=== PATIENT | male | born 1955 | race Caucasian/White ===

== ENCOUNTER 2022-05-31 07:26 | Emergency (ER) | payer MEDICARE, SELFPAY ==
[2022-05-31 07:34] VITALS: BP 141/85; PULSE 85; RESP 16; TEMP 36.7; O2SAT 100; BMI 21.5
--- NOTE | 2022-05-31 07:44 | W.ED.ANIMALB ---
HPI - Animal Bite General: Chief Complaint: Animal Bite Stated Complaint: possible animal bite Time Seen by Provider: 05/31/22 07:28 Source: patient Mode of arrival: ambulatory Limitations: no limitations History of Present Illness: 67-year-old male presents to the ER today for possible bat bite. Patient reports he was out walking in front of his house last night and saw a bat. He denies that it touched him or can anywhere near him. Patient reports when he was wiping his neck off after he got inside and cleaning up for bed, he felt kind of a stinging area on the left side of his neck. Patient denies any blood or open wounds. Again patient denied that the bat was anywhere near him or touched him. Patient was just concerned and thought he should have it checked out today. Review of Systems General: Reports: 10 or more systems reviewed and unremarkable except in HPI and below Physical Exam Const: COMMON NORMALS: no acute distress, average body habitus, patient oriented x3, healthy appearing, alert and well nourished HENMT: COMMON NORMALS: normocephalic, atraumatic and moist oral mucous membranes HEAD & SCALP: normocephalic and atraumatic Eye: COMMON NORMALS: conjunctivae normal CONJUNCTIVA: Yes conjunctivae normal Neck/C-Spine: OTHER: no lesions noted on the neck, no open wounds, no swelling Resp: COMMON NORMALS: normal respiratory effort EFFORT & INSPECTION: Yes able to speak in complete sentences Cardio: COMMON NORMALS: regular rate and regular rhythm RATE: regular rate RHYTHM: regular rhythm Extremity: COMMON NORMALS: normal to inspection and full ROM Neuro: COMMON NORMALS: patient oriented x3 SENSORIUM/ORIENTATION: Yes alert Psych: COMMON NORMALS: mental status grossly normal, Normal thought process present and cooperative THOUGHT PROCESS: Normal thought process present Skin: COMMON NORMALS: no rashes or lesions noted GENERAL SKIN EXAM: no rashes or lesions noted Course ED course: 67-year-old male presents to the ER today for checkup. Patient reports he was outside walking in front of his house last night and started back. Patient reports he then went inside and was cleaning up for bed and noticed a stinging area on the left side of his neck. Patient denies that that touch him or can anywhere near him. Patient denies any known bite. Patient reports he could have a sunspot or small cut or something on his neck but was unable to see it. No other concerns or symptoms at this time. Vital Signs: Vital signs: Vital Signs Temperature 98.1 F 05/31/22 07:34 Pulse Rate 85 05/31/22 07:34 Respiratory Rate 16 05/31/22 07:34 Blood Pressure 141/85 05/31/22 07:34 Pulse Oximetry 100 05/31/22 07:34 Oxygen Delivery Me thod 05/31/22 07:34 MDM - Animal Bite Medical Decision Making 67-year-old male presents to the ER today for checkup. Patient reports he was outside walking in front of his house last night and started back. Patient reports he then went inside and was cleaning up for bed and noticed a stinging area on the left side of his neck. Patient denies that that touch him or can anywhere near him. Patient denies any known bite. Patient reports he could have a sunspot or small cut or something on his neck but was unable to see it. No other concerns or symptoms at this time. After discussing this with patient, I do not feel patient was bit by a bat. Patient was awake and alert the whole time outside and did not feel anything touched him or bite him. He likely would have felt a bat either hit him, bite him, etc. Recommended patient continue to watch that site. Patient does have what appears to be possible AK in the area he was pointing to however there is not a definitive lesion or spot right there. Recommend follow-up with PCP in 3 to 5 days or as needed. Return to the ER with new or worsening symptoms. Patient verbalized understanding and was in agreement with the treatment plan. Critical Care Time Critical Care Time: Critical Care Time: No Discharge Plan Discharge Patient Disposition: Home Clinical Impression: Worried well Condition: Stable Discharge Orders: Discharge ED (Routine); Ordered 05/31/22 Ordered By: Dalia Sheehan Referrals: Edgardo Briseno [Family Provider] - Discharge Diet: Usual diet Discharge Activity: Resume usual activity Patient Instructions: Opioid Safety Activity Restrictions/Additional Instructions: Follow-up with PCP as needed. Coding Level of Care Code ED Finger Grip Machine Operator for Adriana Bull
== END 2022-05-31 07:57 | disposition home or self-care (01) ==
LOC: ER 08:11
PROVIDERS: Emergency Provider Family Medicine
DX: Z03.89 Encounter for observation for other suspected diseases and conditions ruled out (principal)
CPT/HCPCS: 99282

== ENCOUNTER → 2024-09-19 09:47 | Outpatient (BNVA) | payer MEDICARE, SELFPAY | PROVIDERS: PCP Nurse Practitioner Family; Referring Provider Nurse Practitioner Family; Visit Provider Nurse Practitioner Family | DX: L81.4 Other melanin hyperpigmentation (principal); L82.1 Other seborrheic keratosis; L57.8 Other skin changes due to chronic exposure to nonionizing radiation; D48.5 Neoplasm of uncertain behavior of skin; L57.0 Actinic keratosis | CPT/HCPCS: 11102; 17000; 99203 ==

== ENCOUNTER → 2025-03-20 08:52 | Outpatient (BNVA) | payer MEDICARE, SELFPAY | PROVIDERS: PCP Nurse Practitioner Family; Visit Provider Nurse Practitioner Family | DX: L81.4 Other melanin hyperpigmentation (principal); L57.8 Other skin changes due to chronic exposure to nonionizing radiation; L82.0 Inflamed seborrheic keratosis; L29.89 Other pruritus; R20.9 Unspecified disturbances of skin sensation; R20.8 Other disturbances of skin sensation; L53.8 Other specified erythematous conditions; L57.0 Actinic keratosis | CPT/HCPCS: 17000; 17110; 99213 ==

== ENCOUNTER → 2025-07-31 12:44 | Outpatient (BNVA) | payer MEDICARE, SELFPAY | PROVIDERS: PCP Nurse Practitioner Family; Visit Provider Orthopaedic Surgery | DX: M17.12 Unilateral primary osteoarthritis, left knee (principal); Z01.89 Encounter for other specified special examinations | CPT/HCPCS: 73560; 73565; 99204 ==

== ENCOUNTER 2025-08-16 13:13 | Observation (INO) | payer MEDICARE, SELFPAY ==
[2025-08-16] VITALS (15 sets, daily range): BP systolic 94–133; BP diastolic 53–83; PULSE 60–88; RESP 15–18; TEMP 36.3–36.8; O2SAT 97–99; BMI 20.7
--- NOTE | 2025-08-16 09:01 | ANES.PREANE2 ---
Pre-Anesthetic Assessment Height/Weight: Height 5 ft 10 in Preop Diagnosis: Knee arthritis Operation Date: 08/16/25 10:00 Proposed Procedures p LEFT Total Knee Arthroplasty(Left) - Stephan Ray MD Was Beta Celi taken within 24 hours: N/A Was Clonidine taken within 24 hours: N/A Social No alcohol and No tobacco Exam alert, oriented x 3, clear to auscultation bilaterally and regular rate & rhythm Airway Submandibular: within normal limits Cervical ROM: within normal limits Mallampati: Class I Comments: Comments: Edentulous Anesthetic Plan ASA status: 1 Anesthesia: MAC and Regional (specify below) Other: No prior issues with anesthesia NPO since yesterday evening Denies any cardiac or pulmonary issues Very active individual, METs greater than 4 Labs pending Plan for spinal anesthetic with peripheral nerve block in PACU setting Medications/Allergies Home Medications ?Medication ?Instructions ?Recorded ?Confirmed ?Last Taken ?Type No Known Home Medications 07/31/25 07/31/25 Unknown History Allergies Allergy/AdvReac Type Severity Reaction Status Date / Time Penicillins Allergy ALGY-Hives Verified 08/15/25 14:55 [facility] Anesthesia Social History Smoking and tobacco/nicotine status: never used tobacco/nicotine Data Anesthesia 08/16/25 09:18 08/16/25 09:18
[2025-08-16 09:53] LABS: Anion Gap 16.9 (5-19); Blood Urea Nitrogen 12 mg/dL (8-23); Calcium 9.2 mg/dL (8.5-10.5); Carbon Dioxide 25 mmol/L (22-29); Chloride 105 mmol/L (98-107); Creatinine Clr Calc Pharmacy 82.7669; Glucose 84 mg/dL (65-115); Osmolality Calculated 295 mOsm/kg (285-295); Potassium 3.9 mmol/L (3.5-5.1); Sodium 143 mmol/L (136-145)
[2025-08-16 10:20] LABS: Hematocrit 44.6 % (37-53); Hemoglobin 14.90 g/dL (11.27-16.99); Mean Corpuscular HGB Conc 33.4 g/dL (30-55); Mean Corpuscular Hemoglobin 31.2 pg (27-33); Mean Corpuscular Volume 93.5 fl (82-101); Nucleated Red Blood Cells % 0 %; Platelet Count 237 10^3/cmm (157-399); Red Blood Count 4.77 10^6/uL (3.85-5.65); White Blood Count 5.37 10^3/uL (3.29-11.43)
--- NOTE | 2025-08-16 10:31 | W.PM.OPSUD ---
Surgery/Procedure H&P Update DATE OF PROCEDURE: August 16, 2025 DATE H&P PERFORMED: 07/31/25 H&P UPDATE INFORMATION: I have reviewed H&P completed within last 30 days, I have examined patient prior to procedure and No changes to prior documentation PREOP DIAGNOSIS: Knee arthritis PLANNED PROCEDURE: Operation Date: 08/16/25 10:00 Proposed Procedures p LEFT Total Knee Arthroplasty(Left) - Stephan Ray MD
[2025-08-16] MEDS: tranexamic acid 1,000 mg/10mL SDV 1000 MG IV (11:05)
--- NOTE | 2025-08-16 12:23 | XRR_ITS ---
PROCEDURE INFORMATION: Exam: XR Left Knee Exam date and time: 08/16/2025 1:44 PM Age: 70 years old Clinical indication: Pain; Left; Prior surgery; Surgery date: 1-6 months; Surgery type: Lt total knee artroplasty; Additional info: Left total knee arthroplasty TECHNIQUE: Imaging protocol: Radiologic exam of the left knee. Views: 3 views. COMPARISON: CR XR knees AP WB w LT lmt ORTH 07/31/2025 12:52 PM FINDINGS: Tubes, catheters and devices: Midline navi. Bones/joints: Left knee arthroplasty. Patellar resurfacing. Postoperative air and fluid in the knee joint space. Soft tissues: Normal. XR/XR knee LT 3V* [id number] IMPRESSION: Expected postoperative changes, status-post left knee arthroplasty. Anatomic alignment. No periprosthetic fracture.
--- NOTE | 2025-08-16 12:29 | P.OP_ITS ---
Operative Report Date of procedure: August 16, 2025 Surgeon: Stephan Ray MD Procedure: Preoperative diagnosis: End-stage degenerative joint disease left knee Postoperative diagnosis: Same Procedure: Left total knee arthroplasty Surgeon: Stephan Ray MD [employer] Representative: LILLY Castano's assistance was necessary for positioning of the patient, assistance during the procedure, wound closure, and dressing placement Anesthesia: Spinal EBL: 100 cc Tourniquet time: 37 minutes at 250 mmHg Indications: Alex is a 70-year-old white male has been followed in the orthopedic clinics for debilitating left knee pain. Said pain problems difficulties with this. Conservative measures have not been of any help of as of lately.. X-rays have demonstrated degenerative changes within his knee with sclerosis of the subchondral bone of the femur and tibia. Majority of his pain is medially. Therefore at this time he is offered a total knee arthroplasty. All risk, benefits, treatment alternatives were discussed with him and he is agreeable to this at this time. Procedure: After obtaining written consent patient was taken to the operating room placed on the operative table supine position spinal anesthetic was ad ministered. Once good anesthesia was achieved pneumatic cuffs placed on proximal left leg left leg was prepped and draped usual fashion. After surgical timeout and gravity exsanguination pneumatic cuff was inflated 2 and 50 mmHg. Longitudinal incision was made along the anterior aspect of the knee from tibial tubercle to superior pole the patella. Patient's foot was held in a foot holding device to the knee flexed at 90 degrees. Knee was then opened up along medial parapatellar incision line. Soft tissues were sharply debrided including anterior horn and medial meniscus ACL and hypertrophic scar and fat pad. Capsule was stripped from the medial aspect of the tibia for better exposure. Knee was then put out to full extension and patella was everted. Excess bone and tissue around its periphery was removed and patella was reamed to 14 mm thickness. Patellas placed back to lateral gutter knee flexed back to 90 degrees. Appropriate soft tissue retractors were placed both medially and laterally as well as a PCL retractor. Tibial cutting guide was position for 2 mm cut off the most affected side that being medial. This is pinned in place with appropriate posterior slope. Sagittal saw was then used to make this cut after a small osteotome may have been driven anterior to the PCL protected during this time. Box cut was made around the insertion of the PCL and tibial cut was removed piecemeal. PCL retractor was removed drill hole was placed in the distal femur just anterior to the intercondylar notch. Guide josselin was placed up the intramedullary canal of the femur and distal cutting block was positioned and pinned in place. Distal cuts were made without any difficulties. Distal femur sized a size 9 femoral cutting block. Guide holes were drilled through this. Size 9 cutting block was then impacted on the distal femur. Anterior posterior and chamfer cuts were made without any difficulties. At this point PCL tractors placed back into the joint line and all soft tissue was removed from the joint line. At this point sizing of the tibial surface demonstrated that would be very tight posteriorly and therefore it is felt that 2 more millimeter cut off the tibia was necessary. Guidepins were placed back into the original drill holes. Cutting block was placed over this and a 2 mm cut was made. All excess bone and soft tissue removed from the joint line. Proximal tibia is then sized to a size E tray precisely and pinned in place. Trial size 10 tibial spacer was placed on this. Subsequently size 9 trial femoral component was then impacted on the distal femur. Leg was put through range of motion found to have a slight flexion contracture. Otherwise, knee had full range of motion and was stable in all positions. Patella was sized to size 32 p atellar button appropriate drill holes were placed through the guide. Trial patella was placed on the posterior patella soft tissue was released from subcutaneous tissue laterally that was tethering the retinaculum. Knee put through range of motion patella showed good tracking without any assistance. Tibial trial was removed. Knee was flexed up to 90 degrees drill holes were placed for the trial femoral component for post of the permanent component. All trial components removed other than the tibial tray. At this point a curved osteotome was used to do a posterior release of the capsule on the posterior aspect of the femur. Once this is completed tibial tray was then used for drilling and then punch for individually post for the primary component. Appropriate drill holes placed. Trial tibial tray was removed. Knee was washed with copious amounts of pulse lavage irrigation at this time remove all debris. Bone plug was placed in the distal femoral guide hole. Permanent size EE tibial tray was impacted in the proximal tibia. Permanent size 9 femoral component was impacted onto the distal femur. At this point a trial size 10 tibial spacer was placed now demonstrating good range of motion and full extension of the knee. Permanent size 32 patellar button was then impacted in the posterior patella with patellar clamp. Knee again was put to range of motion and found to be stable with good tracking the patella. Knee was flexed back up to 9 degrees and trial tibial spacer was removed and a permanent size 10 polyethylene spacer was placed in and locked in place. Knee again was put through range of motion found to be very stable. Pneumatic cuff is deflated after 37 minutes total tourniquet time. Knee was put on a knee bump and the knee was washed again with pulse Avage irrigation. Extensor mechanism repaired with #1 Vicryl [id number] sutures. Subcutaneous tissue reapproximated 2-0 Vicryl interrupted sutures and skin was closed with skin navi. Wounds are clean and dry dressed with Xeroform gauze sterile gauze dressing OpSite Webril and Flakito wrap. Patient was then awakened transferred cover room stable condition
--- NOTE | 2025-08-16 13:07 | ANES.PROC ---
Anesthesia Procedures Procedure/Date: 08/16/25 Left adductor canal block and left iPAQ block for postoperative pain control Nerve Block ^: Nerve Block 1: Main Anesthesia: spinal anesthesia block Time Out Performed: Yes Consent: requested by attending/covering physician and from patient Laterality: Left Nerve block location: adductor canal Anesthesia monitors applied: pulse oximetry, EKG, BP cuff and oxygen Nerve block position: supine Anesthetic Used: ropivicaine 0.5% Amount of anesthesia used (mL): 20 Ultrasound used to: recognize landmarks Nerve Stimulator Used?: No Interscalene/Femoral BLK: other needle (pjunk 4inch) Injection: neg aspiration of heme Patient Tolerated Procedure: well Complications: none Nerve Block 2: Main Anesthesia: spinal anesthesia block Time Out Performed: Yes Consent: requested by attending/covering physician and from patient Laterality: Left Nerve block location: other (IPACK) Anesthesia monitors applied: pulse oximetry, EKG, BP cuff and oxygen Nerve block position: supine Anesthetic Used: other (ropivacaine 0.2%) Amount of anesthesia used (mL): 20 Ultrasound used to: recognize landmarks Nerve Stimulator Used?: No Interscalene/Femoral BLK: other needle (pjunk 4inch) Injection: neg aspiration of heme Patient Tolerated Procedure: well Complications: none
--- NOTE | 2025-08-16 13:20 | ANE.PACU2 ---
Inpatient post-anesthesia follow up: Airway intact: Yes Vital signs: Temperature 98.0 F Pulse Rate 78 Respiratory Rate 16 Blood Pressure 132/72 Pulse Oximetry 98 Oxygen Delivery Me thod Room Air Oxygen Flow Rate Fraction of Inspir ed Oxygen Hydration adequate: Yes Nausea and vomiting: No Pain level: 1 Mental status: Baseline
[2025-08-16] MEDS: sennosides-docusate Tablet 2 TAB PO (17:24)
[2025-08-16] MEDS: HYDROcodone-acetaminophen 5-325 mg Tablet 1 TAB PO (17:24)
[2025-08-16] MEDS: chlorhexidine gluconate 0.12% Btl 473 mL 30 ML MUCOUS MEM ×2 (17:24→22:34)
[2025-08-16] MEDS: mupirocin oint 22 gm 1 APPLIC NASAL (17:24)
[2025-08-17] MEDS: HYDROcodone-acetaminophen 5-325 mg Tablet 1 TAB PO (00:01)
[2025-08-17 04:26] VITALS: BP 118/56; PULSE 60; RESP 16; TEMP 36.9; O2SAT 97
[2025-08-17] MEDS: sennosides-docusate Tablet 2 TAB PO (04:36)
[2025-08-17] MEDS: chlorhexidine gluconate 0.12% Btl 473 mL 30 ML MUCOUS MEM (04:36)
[2025-08-17] MEDS: multivitamin therapeutic Tablet 1 TAB PO (04:36)
[2025-08-17] MEDS: mupirocin oint 22 gm 1 APPLIC NASAL (04:37)
[2025-08-17 04:41] LABS: Hematocrit 35.8 % (37-53); Hemoglobin 11.80 g/dL (11.27-16.99); Mean Corpuscular HGB Conc 33.0 g/dL (30-55); Mean Corpuscular Hemoglobin 31.3 pg (27-33); Mean Corpuscular Volume 95.0 fl (82-101); Nucleated Red Blood Cells % 0 %; Platelet Count 176 10^3/cmm (157-399); Red Blood Count 3.77 10^6/uL (3.85-5.65); White Blood Count 6.48 10^3/uL (3.29-11.43)
[2025-08-17 05:07] LABS: Anion Gap 13.3 (5-19); Blood Urea Nitrogen 13 mg/dL (8-23); Calcium 8.1 mg/dL (8.5-10.5); Carbon Dioxide 24 mmol/L (22-29); Chloride 108 mmol/L (98-107); Creatinine Clr Calc Pharmacy 82.7669; Glucose 101 mg/dL (65-115); Osmolality Calculated 292 mOsm/kg (285-295); Potassium 4.3 mmol/L (3.5-5.1); Sodium 141 mmol/L (136-145)
[2025-08-17 08:47] VITALS: BP 120/65; PULSE 74; RESP 16; TEMP 36.4; O2SAT 96
--- NOTE | 2025-08-17 09:28 | P.DS_ITS ---
Discharge Providers Date of Admission: 08/16/25 13:13 Date of Discharge: August 17, 2025 Attending Provider at Admission: Stephan Ray MD Attending Provider at Discharge: Stephan Ray MD Primary Care Provider: Lorena Fofana DO Reason for Visit Reason for Visit: M25.562 Brief History: Alex is a 70-year-old white male was seen in the orthopedic clinics for debilitating knee pain. Having failed all conservative measures having x-ray findings consistent with osteoarthritic changes he was offered a left total knee arthroplasty and excepted this Hospital Course Hospital Course Patient was admitted on 08/16/2025 and underwent the above-stated procedure. Tolerated this procedure well and actually that first day was up and ambulatory on his new left knee. He is doing quite well over the course of the evening. Pain is under good control. He is work with physical therapy twice now. Therapy indicates he is only lacking last few degrees of full extension but is doing quite well. Therefore at this time we will go ahead and plan on discharge home and follow-up in the next 3 weeks. Physical Exam Narrative: Patient is in bed with dressings in place. Dressings are clear. He appears to be neurovasc intact left lower extremity. He is with the therapist and demonstrating just lacking the last 5 degrees of full extension. Urinary Catheter Management: [place]: Cath Placed During This Visit: yes, but has since been removed by the nurse Reason for Continuing Indwelling Catheter: Decision to DC Catheter Urinary Catheter Date of Insertion: 08/16/25 Urinary Catheter Time of Insertion: 11:00 Date Urinary Catheter Removed: 08/16/25 Time Urinary Catheter Discontinued: 22:35 Discharge Data Studies Completed and Pending Completed Studies During Hospitalization Category Date Time Status XR knee LT 3V* [id number] Routine Exams 08/16/25 12:23 Completed Pending at discharge Category Date Time Status Complete Blood Count w/Auto AM LABS Lab 08/18/25 04:00 Uncollected Complete Blood Count w/Auto AM LABS Lab 08/19/25 04:00 Uncollected Radiology Impressions Knee X-Ray 08/16/25 12:23 IMPRESSION: Expected postoperative changes, status-post left knee arthroplasty. Anatomic alignment. No periprosthetic fracture. Laboratory Results WBC 6.48 10^3/uL (3.29-11.43) 08/17/25 04:30 RBC 3.77 10^6/uL (3.85-5.65) L 08/17/25 04:30 Hgb 11.80 g/dL (11.27-16.99) 08/17/25 04:30 Hct 35.8 % (37-53) L 08/17/25 04:30 MCV 95.0 fl (82-101) 08/17/25 04:30 MCH 31.3 pg (27-33) 08/17/25 04:30 MCHC 33.0 g/dL (30-55) 08/17/25 04:30 RDW 12.9 % (12.1-15.1) 08/17/25 04:30 Plt Count 176 10^3/cmm (157-399) 08/17/25 04:30 MPV 10.5 fL (7.4-10.4) H 08/17/25 04:30 Neut % (Auto) 61.5 % 08/17/25 04:30 Lymph % (Auto) 20.5 % 08/17/25 04:30 [place] % (Auto) 12.3 % 08/17/25 04:30 Eos % (Auto) 4.8 % 08/17/25 04:30 Baso % (Auto) 0.6 % 08/17/25 04:30 Neut # (Auto) 3.98 10^3/uL (1.8-7.7) 08/17/25 04:30 Lymph # (Auto) 1.3 10^3/uL (0.8-4.8) 08/17/25 04:30 [place] # (Auto) 0.8 10^3/uL (0.2-0.9) 08/17/25 04:30 Eos # (Auto) 0.3 10^3/uL (0.0-0.8) 08/17/25 04:30 Baso # (Auto) 0.0 10^3/uL (0.0-0.1) 08/17/25 04:30 Nucleated RBC % (auto) 0 % 08/17/25 04:30 Nucleated RBCs # 0.0 /100WBC 08/17/25 04:30 Sodium 141 mmol/L (136-145) 08/17/25 04:30 Potassium 4.3 mmol/L (3.5-5.1) 08/17/25 04:30 Chloride 108 mmol/L (98-107) H 08/17/25 04:30 Carbon Dioxide 24 mmol/L (22-29) 08/17/25 04:30 Anion Gap 13.3 (5-19) 08/17/25 04:30 BUN 13 mg/dL (8-23) 08/17/25 04:30 Creatinine 0.8 mg/dL (0.7-1.2) 08/17/25 04:30 GFR Calculation Not Reportable 08/17/25 04:30 Glucose 101 mg/dL (65-115) 08/17/25 04:30 Calculated Osmolality 292 mOsm/kg (285-295) 08/17/25 04:30 Calcium 8.1 mg/dL (8.5-10.5) L 08/17/25 04:30 Procedures Performed Left total knee arthroplasty Vitals Last Vital Signs Temp 97.6 F 08/17/25 08:47 Pulse 74 08/17/25 08:47 Resp 16 08/17/25 08:47 BP 120/65 08/17/25 08:47 Pulse Ox 96 08/17/25 08:47 O2 Del Method Room Air 08/17/25 08:47 Discharge Plan Discharge Patient Disposition: Home Condition: Stable Prescriptions: New hydrocodone-acetaminophen 5-325 mg tablet 1 tab PO Q6H PRN (Reason: pain) Qty: 30 0RF Discharge Order = DC NOW: Discharge Order (Routine); Ordered 08/17/25 Ordered By: Stephan Ray Other Ambulatory Orders: Physical Therapy Eval and Treat Outpatient (Order) Timeframe: 3 Days Facility: [facility] - Location: Physical Therapy [place] Ordered By: Stephan Ray Referrals: [facility] Outpatient Therapy [Outside] - 08/27/25 8:00 am Referral Note: If you are unable to keep this appointment please call to reschedule. This appointment is for your physical therapy evaluation. Stephan Ray MD [Physician, Orthopedics] - 09/07/25 9:00 am Discharge Diet: Advance as tolerated Discharge Activity: Increase activity as tolerated Patient Instructions: Hydrocodone/Acetaminophen (By mouth) (Vicodin, Mora), Acute Wound Care (DC), Opioid Safety, Post Anesthesia Care, Patient Portal & Victorino Instructions Activity Restrictions/Additional Instructions: Leave dressing on knee until follow-up May shower with dressing covered Ice and elevate often Ambulate daily Work on knee range of motion daily Call with any concerns Discharge Attestations Time Spent in Discharge Care*: less than 30 min Quality Metrics Clinical Quality Measures [ No reported AMI, CVA or VTE this stay] Coding Level of Care Code Acute Code for Chg Jorgito
[2025-08-17 10:03] VITALS: BP 132/72; PULSE 78; RESP 16; TEMP 36.7; O2SAT 98
== END 2025-08-17 10:04 | disposition home health service (06) ==
LOC: OBGYN 13:13
PROVIDERS: Student in an Organized Health Care Education/Training Program; Admitting Provider Orthopaedic Surgery; PCP Family Medicine; Visit Provider Orthopaedic Surgery
PROC: (CPT 27447; principal; 2025-08-16 10:00)
DX: M17.12 Unilateral primary osteoarthritis, left knee (principal)
CPT/HCPCS: 64447; 27447; 36415; 51702; 73562; 80048; 85025; 97110; 97116; 97161; 97165; A4216; C1776; G0378; J1885; J2704; J3490; J7030; J9999

== ENCOUNTER → 2025-08-30 09:24 | Outpatient (BNVA) | payer MEDICARE, SELFPAY | PROVIDERS: PCP Family Medicine; Visit Provider Orthopaedic Surgery | DX: Z96.652 Presence of left artificial knee joint (principal) | CPT/HCPCS: 99024 ==

== ENCOUNTER → 2025-09-04 09:41 | Outpatient (BNVA) | payer MEDICARE, SELFPAY | PROVIDERS: PCP Family Medicine; Visit Provider Orthopaedic Surgery | DX: Z96.652 Presence of left artificial knee joint (principal) | CPT/HCPCS: 73560; 73565; 99024 ==